=== PATIENT | male | born 1985 | race Caucasian/White ===

== ENCOUNTER → 2017-06-22 | Outpatient (CLI) | payer MEDICAID ==
[~2017-06-22] MED LIST: GADOBUTROL 10 ML VIAL IVP ONE
== END ==
LOC: FIMAGING 18:25
PROVIDERS: ATTEND Physician Assistant Medical
DX: Z13.828 Encounter for screening for other musculoskeletal disorder (principal); R26.9 Unspecified abnormalities of gait and mobility; Z82.0 Family history of epilepsy and other diseases of the nervous system
CPT/HCPCS: A9585